=== PATIENT | female | born 1990 | race Caucasian/White ===

== ENCOUNTER 2018-05-24 05:23 | Day surgery (SDC) | payer MEDICAID ==
[~2018-05-24] VITALS: Ht 157.5 cm; Wt 61.2 kg
[2018-05-24 06:27] LABS: BASOPHILS % 0.4 % (0.0-2.0); EOSINOPHILS % 1.7 % (0.0-5.0); HEMATOCRIT. 32.9 % (36.0-48.0); HEMOGLOBIN. 11.3 g/dL (12.0-16.0); LYMPHOCYTES % 24.5 % (20.0-50.0); MEAN CORPUSCULAR HEMOGLOBIN 31.2 pg (28.0-32.0); MEAN CORPUSCULAR VOLUME 90.8 fL (81.0-99.0); MEAN PLATELET VOLUME 7.7 fl (7.4-10.4); MONOCYTES % 6.5 % (2.0-8.0); NEUTROPHILS % 66.9 % (40.0-76.0); PLATELET 278 x1000/uL (130-400); RED BLOOD CELL COUNT 3.63 mill/uL (4.2-5.4); RED CELL DISTRIBUTION WIDTH 13.2 % (11.6-14.6)
[2018-05-24 06:31] LABS: CHLORIDE 109 mEq/L (98-107)
[2018-05-24 06:31] LABS: CLARITY URINE CLEAR (CLEAR); COLOR URINE YELLOW (YELLOW); KETONES URINE NEGATIVE (NEGATIVE); LEUKOCYTE ESTERASE URINE 1+ (NEGATIVE); NITRITE URINE NEGATIVE (NEGATIVE); OCCULT BLOOD URINE NEGATIVE (NEGATIVE); PH URINE 5.5 (4.5-8.0); PROTEIN URINE NEGATIVE (NEGATIVE); SPECIFIC GRAVITY URINE 1.027 (1.005-1.030); UROBILINOGEN URINE 0.2 E.U./dL (0.2-1.0)
[2018-05-24 06:46] LABS: PARTIAL THROMBOPLASTIN TIME 25.5 sec (23.4-31.0); PROTHROMBIN TIME 9.6 sec (9.1-11.1)
[2018-05-24] MEDS ORDERED: CEFAZOLIN SODIUM 1000MG/VIAL ONE (07:49)
[2018-05-24] MEDS ORDERED: LIDOCAINE HCL/PF 1% 10 MG/ML 5ML VIAL ONE (07:49)
[2018-05-24] MEDS ORDERED: PROPOFOL 200MG/20ML VIAL IV ONE (07:49)
[2018-05-24] MEDS ORDERED: SUCCINYLCHOLINE CHLORIDE 200MG/10ML IV ONE (07:49)
[2018-05-24] MEDS ORDERED: FENTANYL CITRATE/PF 50MCG/ML 2ML VIAL ONE (07:49)
[2018-05-24] MEDS ORDERED: PROG50VI5 IM (07:51)
[2018-05-24] MEDS ORDERED: PNV1TABL76 PO (07:51)
[2018-05-24] MEDS ORDERED: ASPI-1159 PO (07:51)
[2018-05-24] MEDS ORDERED: ALBU18HF2 IH (07:51)
[2018-05-24] MEDS ORDERED: ONDANSETRON HCL 4MG/2ML INJ ONE (07:53)
[2018-05-24] MEDS ORDERED: BUPIVACAINE HCL/DEXTROSE/PF 0.75% 2ML AMP INJ ONE (08:10)
[2018-05-24] MEDS ORDERED: EPHEDRINE SULFATE 50MG/ML VIAL ONE (08:26)
[2018-05-24] MEDS ORDERED: ONDANSETRON HCL 4MG/2ML INJ IV PRN (08:45)
[2018-05-24] MEDS ORDERED: HYDROMORPHONE HCL/PF 2MG/ML CPJ IV PRN (08:45)
[2018-05-24] MEDS ORDERED: MEPERIDINE HCL/PF 25MG/ML CPJ IV PRN (08:45)
[2018-05-24] MEDS ORDERED: KETOROLAC 30MG/ML VIAL ONE (08:48)
[2018-05-24] MEDS ORDERED: SODIUM CHLORIDE 0.9% 1,000 ML IV ONE (08:52)
[2018-05-24] MEDS ORDERED: KETOROLAC 30MG/ML VIAL IV NR (09:15)
== END 2018-05-24 11:55 | disposition home or self-care (01) ==
LOC: OR 05:23
PROVIDERS: ATTEND Acupuncturist
DX: O26.872 Cervical shortening, second trimester (principal); N96 Recurrent pregnancy loss; Z3A.18 18 weeks gestation of pregnancy; Z86.2 Personal history of diseases of the blood and blood-forming organs and certain disorders involving the immune mechanism
CPT/HCPCS: 36415; 59320; 80048; 81003; 85025; 85610; 85730; C1758; J0330; J0690; J1885; J2405; J3010; J3490; J2704